=== PATIENT | female | born 1940 | race Caucasian/White ===

== ENCOUNTER 2019-10-06 12:21 | Emergency (ER) | payer MEDICARE ==
[~2019-10-06] VITALS: Ht 157.5 cm; Wt 75.9 kg
--- NOTE | 2019-10-06 12:49 | PHYS DOC ---
Adult General Chief Complaint Chief Complaint: ABDOMINAL PAIN HPI HPI Patient is a 79 year old female who presents with abdominal discomfort. Patient reports she is a dialysis patient, and gone through dialysis last night, and was normal. Reports overnight, she started have some discomfort to her right lower abdomen. States she has not had this before, she had called them and they told her to come to the emergency room. Patient denies nausea, states the pain comes and goes in waves, and feels sharp and is there. States last bowel movement yesterday. Denies any change in urination. She has not missed her dialysis recently. Reports she had a prior peritoneal dialysis shunt in place in her left lower right abdomen, which was removed 1 month ago states or bruising has not changed at this time. States she was unable to do peritoneal dialysis and changed to to hemodialysis. Reports prior history of hysterectomy and appendectomy, all several years ago. Review of Systems Review of Systems Constitutional: Denies fever or chills [] Eyes: Denies change in visual acuity, redness, or eye pain [] HENT: Denies nasal congestion or sore throat [] Respiratory: Denies cough or shortness of breath [] Cardiovascular: No additional information not addressed in HPI [] GI: Reports abdominal pain, nausea. Denies vomiting, bloody stools or diarrhea [] : Denies dysuria or hematuria [] Musculoskeletal: Denies back pain or joint pain [] Integument: Denies rash or skin lesions [] Neurologic: Denies headache, focal weakness or sensory changes [] Endocrine: Denies polyuria or polydipsia [] All other systems were reviewed and found to be within normal limits, except as documented in this note. Current Medications Current Medications Current Medications Medications (Trade) Dose Ordered Sig/Ирина Start Time Stop Time Status Last Admin Dose Admin Fentanyl Citrate (Fentanyl 2ml Vial) 50 mcg 1X ONCE 10/06/19 14:30 10/06/19 14:31 DC 10/06/19 14:16 50 MCG Morphine Sulfate (Morphine Sulfate) 2 mg 1X ONCE 10/06/19 13:30 10/06/19 13:31 DC 10/06/19 13:18 2 MG Ondansetron HCl (Zofran) 4 mg 1X ONCE 10/06/19 13:30 10/06/19 13:31 DC 10/06/19 13:18 4 MG Piperacillin Sod/ Tazobactam Sod 2.25 gm/Sodium Chloride 50 ml @ 100 mls/hr 1X ONCE 10/06/19 14:00 10/06/19 14:29 DC 10/06/19 14:09 100 MLS/HR Piperacillin Sod/ Tazobactam Sod 3.375 gm/Sodium Chloride 50 ml @ 100 mls/hr 1X ONCE 10/06/19 14:00 10/06/19 14:29 UNV Allergies Allergies Allergies Coded Allergies Type Severity Reaction Last Updated Verified No Known Drug Allergies 10/06/19 No Physical Exam Physical Exam Constitutional: Well developed, well nourished, no acute distress, non-toxic appearance. [] HENT: Normocephalic, atraumatic, bilateral external ears normal, oropharynx moist, no oral exudates, nose normal. [] Eyes: PERRLA, EOMI, conjunctiva normal, no discharge. [] Neck: Normal range of motion, no tenderness, supple, no stridor. [] Cardiovascular:Heart rate regular rhythm, no murmur [] Lungs & Thorax: Bilateral breath sounds clear to auscultation [] Abdomen: Bowel sounds normal, soft, lower abdominal tenderness noted, no masses, no pulsatile masses. Bruising noted to right lower quadrant, reportedly due to a previous tube was replaced for her peritoneal dialysis[] Skin: Warm, dry, no erythema, no rash. [] Back: No tenderness, no CVA tenderness. [] Extremities: No tenderness, no cyanosis, no clubbing, ROM intact, no edema. [] Neurologic: Alert and oriented X 3, normal motor function, normal sensory function, no focal deficits noted. [] Psychologic: Affect normal, judgement normal, mood normal. [] Current Patient Data Vital Signs Vital Signs Date Time Temp Pulse Resp B/P (MAP) Pulse Ox O2 Delivery O2 Flow Rate FiO2 10/06/19 15:45 98 16 103/61 (75) 93 Room Air 10/06/19 12:21 99.0 99.0 Lab Values Laboratory Tests Test 10/06/19 12:44 White Blood Count 11.1 x10^3/uL (4.0-11.0) H Red Blood Count 4.50 x10^6/uL (3.50-5.40) Hemoglobin 11.5 g/dL (12.0-15.5) L Hematocrit 35.8 % (36.0-47.0) L Mean Corpuscular Volume 80 fL (79-100) Mean Corpuscular Hemoglobin 26 pg (25-35) Mean Corpuscular Hemoglobin Concent 32 g/dL (31-37) Red Cell Distribution Width 19.5 % (11.5-14.5) H Platelet Count 87 x10^3/uL (140-400) L Neutrophils (%) (Auto) 88 % (31-73) H Lymphocytes (%) (Auto) 9 % (24-48) L Monocytes (%) (Auto) 2 % (0-9) Eosinophils (%) (Auto) 0 % (0-3) Basophils (%) (Auto) 0 % (0-3) Neutrophils # (Auto) 9.8 x10^3/uL (1.8-7.7) H Lymphocytes # (Auto) 1.0 x10^3/uL (1.0-4.8) Monocytes # (Auto) 0.3 x10^3/uL (0.0-1.1) Eosinophils # (Auto) 0.0 x10^3/uL (0.0-0.7) Basophils # (Auto) 0.0 x10^3/uL (0.0-0.2) Segmented Neutrophils % 65 % (35-66) Band Neutrophils % 16 % (0-9) H Lymphocytes % 15 % (24-48) L Monocytes % 4 % (0-10) Platelet Estimate Decreased (ADEQUATE) Anisocytosis Slight Ovalocytes Few Prothrombin Time 13.9 SEC (11.7-14.0) Prothrombin Time INR 1.1 (0.8-1.1) Sodium Level 133 mmol/L (136-145) L Potassium Level 4.2 mmol/L (3.5-5.1) Chloride Level 96 mmol/L (98-107) L Carbon Dioxide Level 31 mmol/L (21-32) Anion Gap 6 (6-14) Blood Urea Nitrogen 29 mg/dL (7-20) H Creatinine 2.4 mg/dL (0.6-1.0) H Estimated GFR (Cockcroft-Gault) 19.5 BUN/Creatinine Ratio 12 (6-20) Glucose Level 107 mg/dL (70-99) H Calcium Level 8.2 mg/dL (8.5-10.1) L Magnesium Level 1.6 mg/dL (1.8-2.4) L Total Bilirubin 0.4 mg/dL (0.2-1.0) Aspartate Amino Transferase (AST) 15 U/L (15-37) Alanine Aminotransferase (ALT) 23 U/L (14-59) Alkaline Phosphatase 62 U/L (46-116) Troponin I Quantitative < 0.017 ng/mL (0.000-0.055) Total Protein 4.9 g/dL (6.4-8.2) L Albumin 2.3 g/dL (3.4-5.0) L Albumin/Globulin Ratio 0.9 (1.0-1.7) L Laboratory Tests 10/06/19 12:44 Laboratory Tests 10/06/19 12:44 EKG EKG Sinus tachycardia, no ST Elevation. Dr Allen @[id number][] Radiology/Procedures Radiology/Procedures indings: Axial images of the abdomen and pelvis were obtained without contrast. Sagittal and coronal reformatted images were provided. Small left basilar pleural effusion is present. Left basilar calcified granuloma is present. Minimal right pleural effusion noted. Small amount of perihepatic ascites is present. Numerous calcified granulomas involving the spleen. Calcifications of the pancreas also are seen. At least 2 diverticula are present involving the distal duodenum and/or moderate to large in size measuring up to 2.2 cm transverse. No surrounding inflammation. Moderate quantity of stool in the colon noted. Diverticulosis is present. Left nephrectomy is evident with surgical clips at the nephrectomy bed. Right ureteral stent is present. Left renal upper pole structure measuring 4.9 cm x 5.1 cm x 6.4 cm longitudinal is present. This appears to be complex cystic structure with a thick rim about it. Fullness of the right upper pole calyces is noted. Extraluminal gas is noted scattered throughout the nondependent aspect of the abdomen within the peritoneal cavity. Right iliac fossa relatively high density fluid concerning for hemorrhage is present. Along the medial aspect of this collection, there is a circumferentially thickened loop of small bowel and this is best seen on coronal image 28. No inflammatory changes identified about the cecum. At the posterolateral aspect, there is a urinary bladder diverticulum measuring up to 2.4 cm. Inferior vena cava is mostly decompressed. Correlate with hydration status. Impression: Extraluminal gas. Complex fluid likely representing hemorrhage in the right iliac fossa. Circumferentially thickened loop of small bowel adjacent to this complex fluid. Mildly high density perihepatic ascites which maybe hemorrhagic. Findings are concerning for perforation although origin is indeterminate. Diverticulosis of the colon. Distal duodenal diverticuli. Urinary bladder diverticulum. Radiology report complex cystic structure which may represent a neoplastic process. Correlate with prior exams if available. Dr. Arrington was informed on 10/06/2019 1:36 PM. PQRS Compliance Statement: One or more of the following individualized dose reduction techniques were utilized for this examination: 1. Automated exposure control 2. Adjustment of the mA and/or kV according to patient size 3. Use of iterative reconstruction technique Electronically signed by: Reed Mcgee MD (10/06/2019 1:37 PM) [id number] [] Course & Med Decision Making Course & Med Decision Making Pertinent Labs and Imaging studies reviewed. (See chart for details) @[address] Allen, will start Zosyn. Contact surgery [@[address] Whitman staff, as surgeon in surgery, discussed findings, and will call back. @1420 Dr Whitman at bedside, examines patient, does not believe acute abdomen, with patient complex cancer history and patient preference for care at [facility], recommends transfer there for further evaluation of ?new right renal mass @1440 Discussed with [facility], will contact back @1530 contacts, Dr Chowdary accepts. Dragon Disclaimer Dragon Disclaimer This electronic medical record was generated, in whole or in part, using a voice recognition dictation system. Departure Departure Impression: Primary Impression: Abdominal pain Additional Impression: Intra-abdominal free air of unknown etiology Disposition: 02 TRANSFER T-[facility] (Transfer to [facility]) Condition: STABLE Problem Qualifiers Primary Impression: Abdominal pain Abdominal location: lower abdomen, unspecified Qualified Codes: R10.30 - Lower abdominal pain, unspecified KEL RUDOLPH APRN Oct 06, 2019 12:49
[2019-10-06 12:57] LABS: BASO % 0 % (0-3); EOS % 0 % (0-3); HEMATOCRIT 35.8 % (36.0-47.0); HEMOGLOBIN 11.5 g/dL (12.0-15.5); LYMPH % 9 % (24-48); MEAN CORPUSCULAR HEMOGLOBIN 26 pg (25-35); MEAN CORPUSCULAR HGB CONC 32 g/dL (31-37); MEAN CORPUSCULAR VOLUME 80 fL (79-100); MONO # 0.3 x10^3/uL (0.0-1.1); MONO % 2 % (0-9); NEUT # 9.8 x10^3/uL (1.8-7.7); NEUT % 88 % (31-73); PLATELET COUNT 87 x10^3/uL (140-400); RED CELL DISTRIBUTION WIDTH 19.5 % (11.5-14.5); WHITE BLOOD COUNT 11.1 x10^3/uL (4.0-11.0)
[2019-10-06 13:05] LABS: CALCIUM 8.2 mg/dL (8.5-10.1); CREATININE 2.4 mg/dL (0.6-1.0); GFR 19.5; POTASSIUM 4.2 mmol/L (3.5-5.1)
[2019-10-06 13:06] LABS: PROTHROMBIN TIME PATIENT 13.9 SEC (11.7-14.0)
[2019-10-06 13:10] LABS: ALBUMIN 2.3 g/dL (3.4-5.0); ALBUMIN/GLOBULIN RATIO 0.9 (1.0-1.7); MAGNESIUM 1.6 mg/dL (1.8-2.4); TOTAL BILIRUBIN 0.4 mg/dL (0.2-1.0); TOTAL PROTEIN 4.9 g/dL (6.4-8.2)
[2019-10-06] MEDS ORDERED: MORPHINE SULFATE 2 MG/ML VIAL. IV ONE (13:30)
[2019-10-06] MEDS ORDERED: ONDANSETRON PF 4 MG/2 ML VIAL. IV ONE (13:30)
--- NOTE | 2019-10-06 13:40 | RAD ---
Examination: CT ABDOMEN PELVIS WO CONTRAST History: Lower abdominal pain Comparison/Correlation: None Findings: Axial images of the abdomen and pelvis were obtained without contrast. Sagittal and coronal reformatted images were provided. Small left basilar pleural effusion is present. Left basilar calcified granuloma is present. Minimal right pleural effusion noted. Small amount of perihepatic ascites is present. Numerous calcified granulomas involving the spleen. Calcifications of the pancreas also are seen. At least 2 diverticula are present involving the distal duodenum and/or moderate to large in size measuring up to 2.2 cm transverse. No surrounding inflammation. Moderate quantity of stool in the colon noted. Diverticulosis is present. Left nephrectomy is evident with surgical clips at the nephrectomy bed. Right ureteral stent is present. Left renal upper pole structure measuring 4.9 cm x 5.1 cm x 6.4 cm longitudinal is present. This appears to be complex cystic structure with a thick rim about it. Fullness of the right upper pole calyces is noted. Extraluminal gas is noted scattered throughout the nondependent aspect of the abdomen within the peritoneal cavity. Right iliac fossa relatively high density fluid concerning for hemorrhage is present. Along the medial aspect of this collection, there is a circumferentially thickened loop of small bowel and this is best seen on coronal image 28. No inflammatory changes identified about the cecum. At the posterolateral aspect, there is a urinary bladder diverticulum measuring up to 2.4 cm. Inferior vena cava is mostly decompressed. Correlate with hydration status. Impression: Extraluminal gas. Complex fluid likely representing hemorrhage in the right iliac fossa. Circumferentially thickened loop of small bowel adjacent to this complex fluid. Mildly high density perihepatic ascites which maybe hemorrhagic. Findings are concerning for perforation although origin is indeterminate. Diverticulosis of the colon. Distal duodenal diverticuli. Urinary bladder diverticulum. Radiology report complex cystic structure which may represent a neoplastic process. Correlate with prior exams if available. Dr. Arrington was informed on 10/06/2019 1:36 PM. PQRS Compliance Statement: One or more of the following individualized dose reduction techniques were utilized for this examination: 1. Automated exposure control 2. Adjustment of the mA and/or kV according to patient size 3. Use of iterative reconstruction technique Electronically signed by: Reed Mcgee MD (10/06/2019 1:37 PM) [id number]
[2019-10-06] MEDS ORDERED: PIPERACILLIN/TAZOBACTAM 3.375 GM in IV NORMAL SALINE 50ML 50 ML IV ONE (14:00)
[2019-10-06] MEDS ORDERED: PIPERACILLIN/TAZOBACTAM 2.25 GM in IV NORMAL SALINE 50ML 50 ML IV ONE (14:00)
[2019-10-06 14:27] LABS: % BANDS 16 % (0-9); % LYMPHS 15 % (24-48); % MONOS 4 % (0-10); % SEGS 65 % (35-66); PLT ESTIMATE DECREASED (ADEQUATE)
[2019-10-06 14:28] LABS: ANISOCYTOSIS SLIGHT; OVALOCYTES FEW
[2019-10-06] MEDS ORDERED: fentaNYL PF VIAL 100 MCG/2 ML VIAL IV ONE (14:30)
--- NOTE | 2019-10-06 14:30 | RAD ---
Examination: PORTABLE CHEST 1V History: Fatigue Comparison/Correlation: None Findings: Portable upright frontal view of the chest was obtained. Right internal jugular dialysis catheter terminates overlying the superior aspect of the right atrium. Calcified granulomata left lower lung field is present. No pneumothorax. No consolidation. Minimal left pleural effusion noted. Retrocardiac opacity which raises question of atelectasis is present. Impression: No infiltrate. Minimal left pleural effusion and basilar atelectasis. Electronically signed by: Reed Mcgee MD (10/06/2019 2:27 PM) [id number]
--- NOTE | 2019-10-06 14:41 | PDOC2 ---
CONSULT Date of Consult Date of Consult DATE: 10/06/19 TIME: 14:32 Reason for Consult Reason for Consult: abd pain Referring Physician Referring Physician: Adele Identification/Chief Complaint Chief Complaint abd pain, fatigue Source Source: Chart review, Patient History of Present Illness Reason for Visit: 79 yo F with c/o abd pain and fatigue. Pt recently had a PD catheter removed a few weeks ago at [facility]. Notes some pain at incision sites. Denies N/V/F/C. Accompanied by supportive family. Past Medical History Heme/Onc: Cancer (stage 4 renal cell) Renal/: Chronic renal failure, Renal Ca. Past Surgical History Past Surgical History: Other (left nephrectomy 10 years ago in [place], right ureteral stent, right hemodialysis catheter, recent PD cath placement and subsequent replacement and removal) Family History Family History: No Significant Social History No ALCOHOL: none Current Medications Current Medications Current Medications Morphine Sulfate (Morphine Sulfate) 2 mg 1X ONCE IV Last administered on 10/06/19at 13:18; Start 10/06/19 at 13:30; Stop 10/06/19 at 13:31; Status DC Ondansetron HCl (Zofran) 4 mg 1X ONCE IV Last administered on 10/06/19at 13:18; Start 10/06/19 at 13:30; Stop 10/06/19 at 13:31; Status DC Piperacillin Sod/ Tazobactam Sod 3.375 gm/Sodium Chloride 50 ml @ 100 mls/hr 1X ONCE IV ; Start 10/06/19 at 14:00; Stop 10/06/19 at 14:29; Status UNV Piperacillin Sod/ Tazobactam Sod 2.25 gm/Sodium Chloride 50 ml @ 100 mls/hr 1X ONCE IV Last administered on 10/06/19at 14:09; Start 10/06/19 at 14:00; Stop 10/06/19 at 14:29; Status DC Fentanyl Citrate (Fentanyl 2ml Vial) 50 mcg 1X ONCE IV Last administered on 10/06/19at 14:16; Start 10/06/19 at 14:30; Stop 10/06/19 at 14:31; Status DC Allergies Allergies: Coded Allergies: No Known Drug Allergies (Unverified , 10/06/19) ROS Gastrointestinal: Yes Abdominal Pain Physical Exam General: Alert, Oriented X3, Cooperative, No acute distress HEENT: Atraumatic Lungs: Normal air movement Abdomen: Soft, Other (right abdominal wall ecchymosis and TTP with associated incisions from PD removal, no peritoneal signs or other abdominal pain, ND, no masses or hernia) Extremities: No clubbing, No cyanosis Skin: No rashes, No breakdown Psych/Mental Status: Mental status NL, Mood NL Vitals VITALS Vital Signs Date Time Temp Pulse Resp B/P (MAP) Pulse Ox O2 Delivery O2 Flow Rate FiO2 10/06/19 14:16 16 10/06/19 12:21 99.0 108 134/72 (92) 95 99.0 Labs Labs Laboratory Tests Test 10/06/19 12:44 White Blood Count 11.1 x10^3/uL (4.0-11.0) Red Blood Count 4.50 x10^6/uL (3.50-5.40) Hemoglobin 11.5 g/dL (12.0-15.5) Hematocrit 35.8 % (36.0-47.0) Mean Corpuscular Volume 80 fL (79-100) Mean Corpuscular Hemoglobin 26 pg (25-35) Mean Corpuscular Hemoglobin Concent 32 g/dL (31-37) Red Cell Distribution Width 19.5 % (11.5-14.5) Platelet Count 87 x10^3/uL (140-400) Neutrophils (%) (Auto) 88 % (31-73) Lymphocytes (%) (Auto) 9 % (24-48) Monocytes (%) (Auto) 2 % (0-9) Eosinophils (%) (Auto) 0 % (0-3) Basophils (%) (Auto) 0 % (0-3) Neutrophils # (Auto) 9.8 x10^3/uL (1.8-7.7) Lymphocytes # (Auto) 1.0 x10^3/uL (1.0-4.8) Monocytes # (Auto) 0.3 x10^3/uL (0.0-1.1) Eosinophils # (Auto) 0.0 x10^3/uL (0.0-0.7) Basophils # (Auto) 0.0 x10^3/uL (0.0-0.2) Segmented Neutrophils % 65 % (35-66) Band Neutrophils % 16 % (0-9) Lymphocytes % 15 % (24-48) Monocytes % 4 % (0-10) Platelet Estimate Decreased (ADEQUATE) Anisocytosis Slight Ovalocytes Few Prothrombin Time 13.9 SEC (11.7-14.0) Prothromb Time International Ratio 1.1 (0.8-1.1) Sodium Level 133 mmol/L (136-145) Potassium Level 4.2 mmol/L (3.5-5.1) Chloride Level 96 mmol/L (98-107) Carbon Dioxide Level 31 mmol/L (21-32) Anion Gap 6 (6-14) Blood Urea Nitrogen 29 mg/dL (7-20) Creatinine 2.4 mg/dL (0.6-1.0) Estimated GFR (Cockcroft-Gault) 19.5 BUN/Creatinine Ratio 12 (6-20) Glucose Level 107 mg/dL (70-99) Calcium Level 8.2 mg/dL (8.5-10.1) Magnesium Level 1.6 mg/dL (1.8-2.4) Total Bilirubin 0.4 mg/dL (0.2-1.0) Aspartate Amino Transf (AST/SGOT) 15 U/L (15-37) Alanine Aminotransferase (ALT/SGPT) 23 U/L (14-59) Alkaline Phosphatase 62 U/L (46-116) Troponin I Quantitative < 0.017 ng/mL (0.000-0.055) Total Protein 4.9 g/dL (6.4-8.2) Albumin 2.3 g/dL (3.4-5.0) Albumin/Globulin Ratio 0.9 (1.0-1.7) Laboratory Tests Test 10/06/19 12:44 White Blood Count 11.1 x10^3/uL (4.0-11.0) Red Blood Count 4.50 x10^6/uL (3.50-5.40) Hemoglobin 11.5 g/dL (12.0-15.5) Hematocrit 35.8 % (36.0-47.0) Mean Corpuscular Volume 80 fL (79-100) Mean Corpuscular Hemoglobin 26 pg (25-35) Mean Corpuscular Hemoglobin Concent 32 g/dL (31-37) Red Cell Distribution Width 19.5 % (11.5-14.5) Platelet Count 87 x10^3/uL (140-400) Neutrophils (%) (Auto) 88 % (31-73) Lymphocytes (%) (Auto) 9 % (24-48) Monocytes (%) (Auto) 2 % (0-9) Eosinophils (%) (Auto) 0 % (0-3) Basophils (%) (Auto) 0 % (0-3) Neutrophils # (Auto) 9.8 x10^3/uL (1.8-7.7) Lymphocytes # (Auto) 1.0 x10^3/uL (1.0-4.8) Monocytes # (Auto) 0.3 x10^3/uL (0.0-1.1) Eosinophils # (Auto) 0.0 x10^3/uL (0.0-0.7) Basophils # (Auto) 0.0 x10^3/uL (0.0-0.2) Segmented Neutrophils % 65 % (35-66) Band Neutrophils % 16 % (0-9) Lymphocytes % 15 % (24-48) Monocytes % 4 % (0-10) Platelet Estimate Decreased (ADEQUATE) Anisocytosis Slight Ovalocytes Few Prothrombin Time 13.9 SEC (11.7-14.0) Prothromb Time International Ratio 1.1 (0.8-1.1) Sodium Level 133 mmol/L (136-145) Potassium Level 4.2 mmol/L (3.5-5.1) Chloride Level 96 mmol/L (98-107) Carbon Dioxide Level 31 mmol/L (21-32) Anion Gap 6 (6-14) Blood Urea Nitrogen 29 mg/dL (7-20) Creatinine 2.4 mg/dL (0.6-1.0) Estimated GFR (Cockcroft-Gault) 19.5 BUN/Creatinine Ratio 12 (6-20) Glucose Level 107 mg/dL (70-99) Calcium Level 8.2 mg/dL (8.5-10.1) Magnesium Level 1.6 mg/dL (1.8-2.4) Total Bilirubin 0.4 mg/dL (0.2-1.0) Aspartate Amino Transf (AST/SGOT) 15 U/L (15-37) Alanine Aminotransferase (ALT/SGPT) 23 U/L (14-59) Alkaline Phosphatase 62 U/L (46-116) Troponin I Quantitative < 0.017 ng/mL (0.000-0.055) Total Protein 4.9 g/dL (6.4-8.2) Albumin 2.3 g/dL (3.4-5.0) Albumin/Globulin Ratio 0.9 (1.0-1.7) Images Images CT with some perihepatic ascites, small amount of free air, ecchymosis right abdominal wall, no obvious bowel pathology Assessment/Plan Assessment/Plan Pneumoperitoneum appears to be residual from PD catheter removal and suspect ascites and ecchymosis related. Appears to be mildly dehydrated by CT and VS. Appears comfortable and clinically not c/w bowel perforation. Favor hydration and abx. Given pt's extensive complexity (stage 4 kidney cancer, dialysis) favor return to care of treating physicians. Pt had surgery at [facility], but does not wish to return there and favors [facility] (urologist and oncologist there). Thanks for consult! ESEQUIEL HAN MD Oct 06, 2019 14:41
[2019-10-06 17:15] VITALS: BP 132/63
--- NOTE | 2019-10-06 23:56 | EKG ---
[facility] [address] [place] [address] Test Date: 2019-10-06 Test Time: 12:31:16 Pat Name: CARIDAD LEWIS Department: Room: Gender: F Computer Numerical Control Operator: : 1940 Requested By: KEL RUDOLPH Order Number: [id number] Reading MD: Measurements Intervals [place] Rate: 114 P: 17 MI: 136 QRS: 16 QRSD: 72 T: 16 QT: 296 QTc: 411 Interpretive Statements SINUS TACHYCARDIA ATRIAL PREMATURE COMPLEX(ES) QRS(T) CONTOUR ABNORMALITY CONSIDER ANTEROSEPTAL MYOCARDIAL DAMAGE POSSIBLY ABNORMAL ECG RI6.01 No previous ECG available for comparison
== END 2019-10-06 17:25 | disposition short-term general hospital (02) ==
LOC: ER 12:21 → EDBD 12:21 → ER 17:25
DX: S30.1XXA Contusion of abdominal wall, initial encounter (principal); K57.30 Diverticulosis of large intestine without perforation or abscess without bleeding; J90 Pleural effusion, not elsewhere classified; Z85.528 Personal history of other malignant neoplasm of kidney; N32.3 Diverticulum of bladder; R18.8 Other ascites; Z99.2 Dependence on renal dialysis; N18.9 Chronic kidney disease, unspecified; Z79.899 Other long term (current) drug therapy; X58.XXXA Exposure to other specified factors, initial encounter; Y93.89 Activity, other specified; Y92.89 Other specified places as the place of occurrence of the external cause; Y99.8 Other external cause status
CPT/HCPCS: 36415; 71045; 74176; 80053; 83735; 84484; 85007; 85025; 85610; 93005; 96365; 96375; 99285; J2270; J2405; J2543; J3010

== ENCOUNTER → 2019-11-19 | Outpatient (CLI) | payer MEDICARE ==
[2019-11-19 09:43] LABS: CLARITY,URINE BLOODY; COLOR,URINE RED
[2019-11-19 09:46] LABS: BACTERIA,URINE 0 /HPF (0-FEW); RBC,URINE >40 /HPF (0-2); SQUAMOUS EPITHELIAL CELL,UR FEW /LPF; WBC,URINE >40 /HPF (0-4)
== END ==
LOC: SPEC 08:55
PROVIDERS: ATTEND Family Medicine
DX: N39.0 Urinary tract infection, site not specified (principal)
CPT/HCPCS: 81001; 87086